=== PATIENT | female | born 1990 | race Caucasian/White ===

== ENCOUNTER 2019-01-10 20:08 | Emergency (ER) | payer OTHER ==
[2019-01-10 22:54] LABS: ABS Eosinophils 0.3 10^3/ul (0-0.6); ABS Monocytes 0.9 10^3/ul (0-0.8); Hematocrit 40 % (35-47); Hemoglobin 13.7 g/dL (12.0-16.0); Lymphocyte % 41.7 %; Mean Corpuscular HGB Conc 35 g/dL (31-36); Mean Corpuscular Hemoglobin 32 pg (27-31); Mean Corpuscular Volume 92 fL (80-97); Mean Platelet Volume 8.3 fL (7.4-10.4); Platelet Count 260 10^3/uL (150-450); Red Blood Count 4.31 10^6 /uL (3.70-4.87); Red Cell Distribution Width 13 % (10-15); White Blood Count 7.1 10^3/uL (3.5-10.8)
[2019-01-10 23:17] LABS: ALT 13 U/L (7-52); AST 21 U/L (13-39); Albumin 4.3 g/dL (3.2-5.2); Albumin/Globulin Ratio 1.8 (1-3); Alkaline Phosphatase 44 U/L (34-104); Anion Gap 5 mmol/L (2-11); BUN/Creatinine Ratio 18.3 (8-20); Blood Urea Nitrogen 13 mg/dL (6-24); CO2 Carbon Dioxide 27 mmol/L (22-32); Calcium 9.4 mg/dL (8.6-10.3); Chloride 107 mmol/L (101-111); EGFR African American 117.8 (>60); EGFR Non-African American 97.3 (>60); Globulin 2.4 g/dL (2-4); Glucose 142 mg/dL (70-100); Potassium 3.7 mmol/L (3.5-5.0); Sodium 139 mmol/L (135-145); Total Protein 6.7 g/dL (6.4-8.9)
[2019-01-10 23:42] LABS: HCG Pregnancy < 0.60 mIU/mL
--- NOTE | 2019-01-11 01:15 | ED ---
GI/ HPI - HPI Summary HPI Summary: Patient is a 28 y/o F w/ Hx of ovarian cysts presents to [facility] with complaints of right sided abdominal pain. Patient additionally endorses vaginal bleeding ( LNMP was two weeks ago) and dizziness. She states that her present Sx are similar to those that she had during her ovarian cysts. Patient notes that she is sexually active but uses condoms with partner. On triage, pain is rated 3/10 , nothing is noted to aggravate/alleviate Sx. Patient took advil 600 mg 1945 and 400 mg 1345. Home medications and allergies are reviewed. - History of Current Complaint Chief Complaint: EDAbdPain Time Seen by Provider: 01/11/19 01:03 Stated Complaint: ABD PAIN AND BLEEDING PER PT Hx Obtained From: Patient Onset/Duration: Still Present Timing: Constant Current Severity: Mild Pain Intensity: 3 Location of Pain: Other - right abdomen Associated Signs and Symptoms: Positive: Dizziness, Abdominal Pain Additional Signs & Symptoms: Positive: Vaginal Bleeding Aggravating Factor(s): Nothing Alleviating Factor(s): Nothing - Allergy/Home Medications Allergies/Adverse Reactions: Allergies Allergy/AdvReac Type Severity Reaction Status Date / Time No Known Allergies Allergy Verified 01/10/19 20:13 PMH/Surg Hx/FS Hx/Imm Hx Sensory History: Denies: Hx Legally Blind, Hx Deafness Opthamlomology History: Denies: Hx Legally Blind EENT History: Denies: Hx Deafness Infectious Disease History: No Infectious Disease History: Denies: Traveled Outside the [place] in Last 30 Days - Family History Known Family History: Negative: Seizure Disorder - Social History Alcohol Use: Occasionally Substance Use Type: Reports: None Smoking Status (MU): Never Smoked Tobacco Review of Systems Positive: Abdominal Pain Genitourinary: Other - positive - vaginal bleeding Neurological: Other - positive - dizziness All Other Systems Reviewed And Are Negative: Yes Physical Exam - Summary Physical Exam Summary: Appearance: Well-appearing, Well-nourished, lying in bed comfortably Skin: Warm, dry, no obvious rash Eyes: sclera anicteric, no conjunctival pallor ENT: mucous membranes moist, pharynx appears normal Neck: Supple, nontender Respiratory: Clear to auscultation, no signs of respiratory distress Cardiovascular: Normal S1, S2. No murmurs. Normal distal pulses in tibial and radial bilaterally. Abdomen: Mild lower abdominal tenderness with no peritoneal signs noted. Soft, normal active bowel sounds present Musculoskeletal: Normal, Strength/ROM Intact Neurological: A&Ox3, awake and alert, mentation is normal, speech is fluent and appropriate Psychiatric: affect is normal, does not appear anxious or depressed Triage Information Reviewed: Yes Vital Signs On Initial Exam: Initial Vitals Temp Pulse Resp BP Pulse Ox 98.6 F 66 15 117/72 98 01/10/19 20:10 01/10/19 20:10 01/10/19 20:10 01/10/19 20:10 01/10/19 20:10 Vital Signs Reviewed: Yes Diagnostics - Vital Signs Vital Signs Temp Pulse Resp BP Pulse Ox 01/11/19 00:07 98.4 F 63 16 115/62 98 01/10/19 20:10 98.6 F 66 15 117/72 98 - Laboratory Lab Results: Lab Results 01/10/19 01/10/19 Range/Units 22:46 22:46 WBC 7.1 (3.5-10.8) 10^3/uL RBC 4.31 (3.70-4.87) 10^6 /uL Hgb 13.7 (12.0-16.0) g/dL Hct 40 (35-47) % MCV 92 (80-97) fL MCH 32 H (27-31) pg MCHC 35 (31-36) g/dL RDW 13 (10-15) % Plt Count 260 (150-450) 10^3/uL MPV 8.3 (7.4-10.4) fL Neut % (Auto) 42.0 % Lymph % (Auto) 41.7 % [place] % (Auto) 12.2 % Eos % (Auto) 4.0 % Baso % (Auto) 0.1 % Absolute Neuts (auto) 3.0 (1.5-7.7) 10^3/ul Absolute Lymphs (auto) 3.0 (1.0-4.8) 10^3/ul Absolute Monos (auto) 0.9 H (0-0.8) 10^3/ul Absolute Eos (auto) 0.3 (0-0.6) 10^3/ul Absolute Basos (auto) 0.0 (0-0.2) 10^3/ul Absolute Nucleated RBC 0.0 10^3/ul Nucleated RBC % 0.0 Sodium 139 (135-145) mmol/L Potassium 3.7 (3.5-5.0) mmol/L Chloride 107 (101-111) mmol/L Carbon Dioxide 27 (22-32) mmol/L Anion Gap 5 (2-11) mmol/L BUN 13 (6-24) mg/dL Creatinine 0.71 (0.51-0.95) mg/dL Est GFR ( Amer) 117.8 (>60) Est GFR (Non-Af Amer) 97.3 (>60) BUN/Creatinine Ratio 18.3 (8-20) Glucose 142 H (70-100) mg/dL Calcium 9.4 (8.6-10.3) mg/dL Total Bilirubin 0.40 (0.2-1.0) mg/dL AST 21 (13-39) U/L ALT 13 (7-52) U/L Alkaline Phosphatase 44 (34-104) U/L Total Protein 6.7 (6.4-8.9) g/dL Albumin 4.3 (3.2-5.2) g/dL Globulin 2.4 (2-4) g/dL Albumin/Globulin Ratio 1.8 (1-3) Beta HCG, Quant < 0.60 mIU/mL Result Diagrams: 01/10/19 22:46 01/10/19 22:46 Lab Statement: Any lab studies that have been ordered have been reviewed, and results considered in the medical decision making process. - Ultrasound TRANSVAGINAL/PELVIC US Ultrasound Interpretation Completed By: Radiologist Summary of Ultrasound Findings: IMPRESSION: Sonographically normal uterus and ovaries. THIS REPORT WAS REVIEWED BY DR. CARISA RODRIGUEZ Course/Dx - Course Course Of Treatment: Patient is a 28 y/o F w/ Hx of ovarian cysts presents to [facility] with complaints of right sided abdominal pain. Patient additionally endorses vaginal bleeding (LNMP was two weeks ago) and dizziness. She states that her present Sx are similar to those that she had during her ovarian cysts. Patient notes that she is sexually active but uses condoms with partner. On triage, pain is rated 3/10, nothing is noted to aggravate/alleviate Sx. Patient took advil 600 mg 1945 and 400 mg 1345. On physical exam, mild lower abdominal tenderness with no peritoneal signs noted. Bloodwork was obtained. Abnormal values include MCH 32, absolute monos 0.9, glucose 142. Beta HCG was negative. TRANSVAGINAL/PELVIC IMPRESSION: Sonographically normal uterus and ovaries. Patient was discharged to home and will follow up with OBGYN. - Diagnoses Provider Diagnoses: Misha Discharge ED - Sign-Out/Discharge Documenting (check all that apply): Patient Departure - discharge Patient Received Moderate/Deep Sedation with Procedure: No - Discharge Plan Condition: Good Disposition: HOME Patient Education Materials: Misha (ED) Referrals: Lucho Voss MD [Primary Care Provider] - Additional Instructions: The US and lab work look ok, so it is safe to treat your symptoms. You don't need any surgery for this. 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 - Billing Disposition and Condition Condition: GOOD Disposition: Home - Attestation Statements Document Initiated by Jimmy: Yes Documenting Scribe: JASPER CHAVIS Provider For Whom Jimmy is Documenting (Include Credential): JOSE MANUEL YOUNGER MD Scribe Attestation: IJASPER, scribed for JOSE MANUEL YOUNGER MD on 01/15/19 at 0616. Scribe Documentation Reviewed: Yes Provider Attestation: The documentation as recorded by the JASPER duke accurately reflects the service I personally performed and the decisions made by me, JOSE MANUEL YOUNGER MD Status of Scribe Document: Viewed
[2019-01-11 01:38] VITALS: BP 105/62
== END 2019-01-11 01:35 | disposition home or self-care (01) ==
LOC: ED 20:08
DX: N94.0 Mittelschmerz (principal); R42 Dizziness and giddiness; R10.9 Unspecified abdominal pain
CPT/HCPCS: 36415; 76830; 76856; 80053; 84702; 85025; 99282